=== PATIENT | female | born 1985 | race Caucasian/White ===

== ENCOUNTER → 2020-01-31 | Outpatient (REF) | payer OTHER ==
[~2020-01-31] MED LIST: CIPR-249 PO; FLUO40CA PO; METH10TA2 PO; MIRA3350 PO; PHEN-501 PO
[2020-01-31 22:41] LABS: CHLAMYDIA DNA AMPLIFICATION NEGATIVE (NEGATIVE); GC DNA AMPLIFICATION NEGATIVE (NEGATIVE)
== END ==
LOC: M SFHCLERA 18:12
PROVIDERS: ATTEND Nurse Practitioner Family
DX: R30.0 Dysuria (principal)
CPT/HCPCS: 81002; 81025; 87086; 87661; G0463

== ENCOUNTER 2020-02-05 22:13 | Emergency (ER) | payer OTHER ==
[~2020-02-05] VITALS: Ht 157.5 cm; Wt 75.8 kg
[2020-02-05 22:17] VITALS: BP_DIAS 70
[2020-02-05] MEDS ORDERED: FLUO40CA PO (22:23)
[2020-02-05] MEDS ORDERED: METH10TA2 PO (22:23)
[2020-02-05] MEDS ORDERED: CIPR-249 PO (22:23)
[2020-02-05 23:20] LABS: BASO % 0.6 % (0.0-1.0); EOS # 0.1 10^3/uL (0.0-0.5); EOS % 2.7 % (0.0-3.0); HEMATOCRIT 35.8 % (36.0-47.0); HEMOGLOBIN 12.1 g/dl (12.0-15.5); LYMPH % 37.3 % (24.0-44.0); MEAN CORPUSCULAR HEMOGLOBIN 30.3 pg (27.0-33.0); MEAN CORPUSCULAR HGB CONC 33.8 g/dl (32.0-36.5); MEAN CORPUSCULAR VOLUME 89.5 fl (80.0-96.0); MONO # 0.5 10^3/uL (0.0-0.8); MONO % 9.1 % (0.0-5.0); NEUTROPHILS # 2.6 10^3/uL (1.5-8.5); NEUTROPHILS % 49.9 % (36.0-66.0); PLATELET COUNT, AUTOMATED 251 10^3/uL (150-450); WHITE BLOOD COUNT 5.3 10^3/uL (4.0-10.0)
[2020-02-05 23:23] LABS: APPEARANCE, URINE HAZY (CLEAR); BACTERIA, URINE AUTO NEGATIVE (NEGATIVE); BILIRUBIN, URINE AUTO NEGATIVE (NEGATIVE); BLOOD, URINE BLOOD 1+ (NEGATIVE); COLOR, URINE YELLOW (YELLOW); GLUCOSE, URINE (UA) AUTO NEGATIVE (NEGATIVE); KETONE, URINE AUTO NEGATIVE (NEGATIVE); LEUKOCYTE ESTERASE, URINE AUTO TRACE (NEGATIVE); MUCUS, URINE SMALL (NEGATIVE); NITRITE, URINE AUTO NEGATIVE (NEGATIVE); PROTEIN, URINE AUTO NEGATIVE (NEGATIVE); RBC, URINE AUTO 2 /HPF (0-3); SPECIFIC GRAVITY URINE AUTO 1.027 (1.002-1.035); SQUAMOUS EPITHELIAL CELL UR AU 3 /HPF (0-6); WBC, URINE AUTO 2 /HPF (0-3)
[2020-02-05] MEDS ORDERED: ACETAMINOPHEN 325 MG TAB PO ONE (23:30)
[2020-02-05] MEDS ORDERED: KETOROLAC 30 MG/ML VIAL (J1885) IV ONE (23:30)
--- NOTE | 2020-02-05 23:55 | REPVR ---
PROCEDURE INFORMATION: Exam: CT Abdomen And Pelvis Without Contrast Exam date and time: 02/05/2020 11:27 PM Age: 34 years old Clinical indication: Abdominal pain; Flank; Bilateral; Additional info: Bilateral flank pain, rlq pain TECHNIQUE: Imaging protocol: Computed tomography of the abdomen and pelvis without contrast. Radiation optimization: All CT scans at this facility use at least one of these dose optimization techniques: automated exposure control; mA and/or kV adjustment per patient size (includes targeted exams where dose is matched to clinical indication); or iterative reconstruction. COMPARISON: No relevant prior studies available. FINDINGS: Lungs: The imaged portions of the lung bases are clear. Heart: No cardiomegaly or pericardial effusion. Diaphragm: Intact. Liver: Unremarkable. No liver lesion is identified. The contour of the liver is smooth. No hepatomegaly is noted. Gallbladder and bile ducts: No calcified gallstones are noted. No gallbladder wall thickening, pericholecystic fluid, or pericholecystic inflammatory changes are identified. No dilation of the intrahepatic or extrahepatic bile ducts is noted. Pancreas: Unremarkable. No dilation of the main pancreatic duct is noted. There is no inflammatory fat stranding around the pancreas to suggest acute pancreatitis. Spleen: Unremarkable. No splenomegaly is noted. Adrenals: Normal. No adrenal mass is noted. Kidneys and ureters: The kidneys are unremarkable. No renal lesion is noted. No calculi are seen in the kidneys or ureters. There is no hydronephrosis or hydroureter. Stomach and bowel: The stomach is unremarkable. The small bowel is unremarkable. There is no evidence for a bowel obstruction, diverticulosis, diverticulitis, colitis, perforated viscus, pneumatosis intestinalis, intussusception, or volvulus. There is a moderate amount of formed stool in the colon. Appendix: Normal. There is no evidence for appendicitis. Intraperitoneal space: No free air. No fluid collection. Retroperitoneal space: No fluid collection. No mass. Vasculature: There is no abdominal aortic aneurysm or intramural hematoma. Incidental note is made of small round calcifications in the pelvis, which are compatible with phleboliths. Lymph nodes: No enlarged lymph nodes. Bladder: The partially distended urinary bladder is unremarkable. No stones or masses are seen in the bladder. Reproductive: The uterus is anterverted and unremarkable. The ovaries are unremarkable. Bones/joints: No fracture or dislocation is noted. There is no suspicious osteolytic or osteoblastic lesion. Soft tissues: There is a small fat containing umbilical hernia. IMPRESSION: 1. No acute findings in the abdomen or pelvis. Normal appendix. 2. No stones in the kidneys, ureters, or urinary bladder. No hydronephrosis or hydroureter. 3. Moderate amount of formed stool in the colon. No evidence for a bowel obstruction. 4. Small fat containing umbilical hernia. Electronically signed by: Lior Queen On 02/05/2020 23:55:04 PM
[2020-02-06] MEDS ORDERED: MIRA3350 PO (00:13)
[2020-02-06] MEDS ORDERED: PHEN-501 PO (00:16)
[2020-02-06] MEDS ORDERED: PHENAZOPYRIDINE 100 MG TAB PO ONE (00:30)
[2020-02-06 00:42] VITALS: BP_SYST 105
[2020-02-06 02:16] LABS: CHLAMYDIA DNA AMPLIFICATION NEGATIVE (NEGATIVE); GC DNA AMPLIFICATION NEGATIVE (NEGATIVE)
== END 2020-02-06 00:30 | disposition home or self-care (01) ==
LOC: M ED 22:13
DX: K59.00 Constipation, unspecified (principal); N39.0 Urinary tract infection, site not specified; K42.9 Umbilical hernia without obstruction or gangrene; Z79.2 Long term (current) use of antibiotics; Z79.899 Other long term (current) drug therapy; Z88.0 Allergy status to penicillin; Z88.8 Allergy status to other drugs, medicaments and biological substances
CPT/HCPCS: 74176; 80047; 81001; 84702; 85025; 87661; 96374; 99284; J1885

== ENCOUNTER → 2020-02-27 | Outpatient (CLI) | payer OTHER ==
--- NOTE | 2020-02-28 13:22 | ECGEPIP ---
[facility] Test Date: 2020-02-27 Pat Name: MINDI KAPLAN Department: Room: - Gender: Female Body Joiner: : 1985 Requested By: Mikey Dai Order Number: [id number] Reading MD: Cory Jack Measurements Intervals Kenneth Rate: 71 P: 64 MO: 147 QRS: 24 QRSD: 98 T: 24 QT: 403 QTc: 441 Interpretive Statements SINUS RHYTHM, Nonspecific T wave abnormalities (low amplitude). No prior ECG available for comparison at the time of interpretation. Electronically Signed on 02-28-2020 13:22:31 EDT by Cory Jack
== END ==
LOC: M EKG 13:52
PROVIDERS: ATTEND Family Medicine
DX: F11.20 Opioid dependence, uncomplicated (principal)

== ENCOUNTER → 2020-02-27 | Outpatient (CLI) | payer OTHER ==
[2020-02-27 14:55] LABS: BASO % 0.6 % (0.0-1.0); EOS # 0.1 10^3/uL (0.0-0.5); EOS % 1.7 % (0.0-3.0); HEMATOCRIT 35.2 % (36.0-47.0); HEMOGLOBIN 12.2 g/dl (12.0-15.5); LYMPH # 1.7 10^3/uL (1.5-5.0); LYMPH % 31.4 % (24.0-44.0); MEAN CORPUSCULAR HEMOGLOBIN 31.2 pg (27.0-33.0); MEAN CORPUSCULAR HGB CONC 34.7 g/dl (32.0-36.5); MONO # 0.5 10^3/uL (0.0-0.8); MONO % 9.3 % (0.0-5.0); NEUTROPHILS # 3.1 10^3/uL (1.5-8.5); NEUTROPHILS % 56.8 % (36.0-66.0); PLATELET COUNT, AUTOMATED 272 10^3/uL (150-450); RED BLOOD COUNT 3.91 10^6/uL (4.00-5.40); WHITE BLOOD COUNT 5.4 10^3/uL (4.0-10.0)
[2020-02-27 15:24] LABS: ALBUMIN 3.6 GM/DL (3.2-5.2); ALT/SGPT 19 U/L (12-78); BILIRUBIN,DIRECT 0.2 MG/DL (0.0-0.2); BILIRUBIN,TOTAL 0.5 MG/DL (0.2-1.0); BLOOD UREA NITROGEN 8 MG/DL (7-18); CALCIUM LEVEL 8.7 MG/DL (8.5-10.1); CARBON DIOXIDE LEVEL 26 MEQ/L (21-32); CHLORIDE LEVEL 108 MEQ/L (98-107); GLOMERULAR FILTRATION RATE > 60.0 (>60); GLUCOSE, FASTING 79 MG/DL (70-100); SODIUM LEVEL 139 MEQ/L (136-145)
== END ==
LOC: M LAB 13:46
PROVIDERS: ATTEND Nurse Practitioner Family
DX: F11.20 Opioid dependence, uncomplicated (principal)

== ENCOUNTER 2020-03-04 21:32 | Emergency (ER) | payer OTHER ==
[~2020-03-04] VITALS: Ht 154.9 cm; Wt 72.7 kg
[2020-03-04 22:01] VITALS: BP 137/68
== END 2020-03-04 22:07 | disposition home or self-care (01) ==
LOC: M ED 21:32
DX: N89.8 Other specified noninflammatory disorders of vagina (principal); N92.0 Excessive and frequent menstruation with regular cycle; Z88.0 Allergy status to penicillin; Z88.2 Allergy status to sulfonamides; Z88.8 Allergy status to other drugs, medicaments and biological substances; Z79.899 Other long term (current) drug therapy

== ENCOUNTER 2020-04-03 20:54 | Emergency (ER) | payer OTHER ==
[~2020-04-03] VITALS: Ht 154.9 cm; Wt 76.9 kg
[2020-04-03 21:38] LABS: BASO % 0.5 % (0.0-1.0); EOS # 0.1 10^3/uL (0.0-0.5); EOS % 1.8 % (0.0-3.0); HEMATOCRIT 36.1 % (36.0-47.0); HEMOGLOBIN 12.4 g/dl (12.0-15.5); LYMPH # 1.7 10^3/uL (1.5-5.0); LYMPH % 28.2 % (24.0-44.0); MEAN CORPUSCULAR HEMOGLOBIN 30.5 pg (27.0-33.0); MEAN CORPUSCULAR HGB CONC 34.3 g/dl (32.0-36.5); MEAN CORPUSCULAR VOLUME 88.7 fl (80.0-96.0); MONO # 0.5 10^3/uL (0.0-0.8); MONO % 8.7 % (0.0-5.0); NEUTROPHILS # 3.7 10^3/uL (1.5-8.5); NEUTROPHILS % 60.5 % (36.0-66.0); PLATELET COUNT, AUTOMATED 287 10^3/uL (150-450); RED BLOOD COUNT 4.07 10^6/uL (4.00-5.40); WHITE BLOOD COUNT 6.1 10^3/uL (4.0-10.0)
[2020-04-03 22:07] LABS: ALBUMIN 3.5 GM/DL (3.2-5.2); ALT/SGPT 21 U/L (12-78); BILIRUBIN,DIRECT < 0.1 MG/DL (0.0-0.2); BILIRUBIN,TOTAL 0.4 MG/DL (0.2-1.0); LIPASE 100 U/L (73-393); TOTAL PROTEIN 7.4 GM/DL (6.4-8.2)
[2020-04-03] MEDS ORDERED: ACETAMINOPHEN 325 MG TAB PO ONE (22:15)
--- NOTE | 2020-04-03 23:12 | REPVR ---
PROCEDURE INFORMATION: Exam: US , Transvaginal Exam date and time: 04/03/2020 11:00 PM Age: 34 years old Clinical indication: Other: Pelvic pain; Gestational age or lmp: 6; ; Additional info: Rlq and llq abd pain, +hcg TECHNIQUE: Imaging protocol: Real-time transvaginal obstetrical ultrasound of the maternal pelvis and a first trimester with image documentation. Transvaginal imaging was used for better evaluation of the fetus and adnexa. COMPARISON: No relevant prior studies available. FINDINGS: Gestation: No intrauterine gestation sac seen. MATERNAL: Uterus: Uterus measures 7.7 x 5.0 x 4.2 cm. Endometrial stripe measures 1.3 mm in thickness. Uterus is anteverted. Punctate echogenic focus in the anterior wall of the myometrium with ring down artifact. Right adnexa: Right ovary measures 1.8 x 1.9 x 1.9 cm. Normal vascular flow. No masses. Left adnexa: Left ovary measures 2.2 x 1.3 x 1.5 cm. Normal vascular flow. No masses. Intraperitoneal space: Small free fluid in the posterior cul-de-sac. IMPRESSION: 1. No intrauterine gestation sac seen. Differential diagnosis includes very early gestation versus completed miscarriage versus ectopic . Recommend follow-up beta HCG and OB ultrasound. 2. Punctate echogenic focus in the anterior wall of the myometrium with ring down artifact. Possible calcification or postsurgical changes. COMMENTS: Verbally discussed with RADHA FROST at 04/03/2020 11:07 PM EDT. Electronically signed by: Kimberley Elliott On 04/03/2020 23:11:58 PM
[2020-04-03 23:53] VITALS: BP 118/68
== END 2020-04-04 | disposition home or self-care (01) ==
LOC: M ED 20:54
DX: Z32.01 Encounter for pregnancy test, result positive (principal); R10.9 Unspecified abdominal pain; F17.200 Nicotine dependence, unspecified, uncomplicated; Z88.0 Allergy status to penicillin; Z88.2 Allergy status to sulfonamides; Z88.1 Allergy status to other antibiotic agents; Z88.8 Allergy status to other drugs, medicaments and biological substances; Z79.899 Other long term (current) drug therapy; Z79.891 Long term (current) use of opiate analgesic

== ENCOUNTER 2020-04-06 12:33 | Emergency (ER) | payer OTHER ==
[~2020-04-06] VITALS: Ht 154.9 cm; Wt 77.0 kg
[2020-04-06] MEDS ORDERED: PREN200C PO (12:42)
[2020-04-06] MEDS ORDERED: NS 1,000 ML IV ONE (13:00)
[2020-04-06 13:34] LABS: HEMATOCRIT 35.2 % (36.0-47.0); HEMOGLOBIN 12.1 g/dl (12.0-15.5); MEAN CORPUSCULAR HEMOGLOBIN 30.7 pg (27.0-33.0); MEAN CORPUSCULAR HGB CONC 34.4 g/dl (32.0-36.5); MEAN CORPUSCULAR VOLUME 89.3 fl (80.0-96.0); PLATELET COUNT, AUTOMATED 269 10^3/uL (150-450); RED BLOOD COUNT 3.94 10^6/uL (4.00-5.40); WHITE BLOOD COUNT 4.9 10^3/uL (4.0-10.0)
[2020-04-06 14:06] LABS: BLOOD UREA NITROGEN 8 MG/DL (7-18); CALCIUM LEVEL 8.6 MG/DL (8.5-10.1); CARBON DIOXIDE LEVEL 26 MEQ/L (21-32); CHLORIDE LEVEL 108 MEQ/L (98-107); CREATININE FOR GFR 0.77 MG/DL (0.55-1.30); GLOMERULAR FILTRATION RATE > 60.0 (>60); GLUCOSE, FASTING 86 MG/DL (70-100); HCG, SERUM QUANTITATIVE 596 MIU/ML; POTASSIUM SERUM 4.2 MEQ/L (3.5-5.1); SODIUM LEVEL 140 MEQ/L (136-145)
[2020-04-06] MEDS ORDERED: GLYCERIN ADULT SUPP PR ONE (14:30)
[2020-04-06 14:39] VITALS: BP 122/64
== END 2020-04-06 14:42 | disposition home or self-care (01) ==
LOC: M ED 12:33
DX: O36.80X0 Pregnancy with inconclusive fetal viability, not applicable or unspecified (principal); O99.611 Diseases of the digestive system complicating pregnancy, first trimester; K59.00 Constipation, unspecified; O99.341 Other mental disorders complicating pregnancy, first trimester; F32.9 Major depressive disorder, single episode, unspecified; F41.9 Anxiety disorder, unspecified; O99.331 Smoking (tobacco) complicating pregnancy, first trimester; F17.210 Nicotine dependence, cigarettes, uncomplicated; Z79.899 Other long term (current) drug therapy; F11.21 Opioid dependence, in remission; Z88.0 Allergy status to penicillin; Z88.8 Allergy status to other drugs, medicaments and biological substances; Z88.2 Allergy status to sulfonamides; Z3A.01 Less than 8 weeks gestation of pregnancy

== ENCOUNTER → 2020-04-09 | Outpatient (REF) | payer OTHER ==
[~2020-04-09] MED LIST changes: +PREN200C PO
== END ==
LOC: M SFHCWAGY 07:53
PROVIDERS: ATTEND Specialist
DX: O00.90 Unspecified ectopic pregnancy without intrauterine pregnancy (principal)

== ENCOUNTER 2020-04-10 17:30 | Emergency (ER) | payer OTHER ==
[~2020-04-10] VITALS: Ht 154.9 cm; Wt 77.9 kg
[2020-04-10 18:01] LABS: BASO % 0.4 % (0.0-1.0); EOS # 0.1 10^3/uL (0.0-0.5); HEMATOCRIT 34.1 % (36.0-47.0); HEMOGLOBIN 11.7 g/dl (12.0-15.5); LYMPH # 1.7 10^3/uL (1.5-5.0); MEAN CORPUSCULAR HEMOGLOBIN 30.6 pg (27.0-33.0); MEAN CORPUSCULAR HGB CONC 34.3 g/dl (32.0-36.5); MEAN CORPUSCULAR VOLUME 89.3 fl (80.0-96.0); MONO # 0.7 10^3/uL (0.0-0.8); NEUTROPHILS # 4.3 10^3/uL (1.5-8.5); PLATELET COUNT, AUTOMATED 296 10^3/uL (150-450); RED BLOOD COUNT 3.82 10^6/uL (4.00-5.40); WHITE BLOOD COUNT 6.8 10^3/uL (4.0-10.0)
[2020-04-10 18:30] LABS: ALBUMIN 3.6 GM/DL (3.2-5.2); ALT/SGPT 23 U/L (12-78); BILIRUBIN,TOTAL 0.3 MG/DL (0.2-1.0); BLOOD UREA NITROGEN 7 MG/DL (7-18); CALCIUM LEVEL 8.6 MG/DL (8.5-10.1); CARBON DIOXIDE LEVEL 28 MEQ/L (21-32); CHLORIDE LEVEL 106 MEQ/L (98-107); CREATININE FOR GFR 0.74 MG/DL (0.55-1.30); GLOMERULAR FILTRATION RATE > 60.0 (>60); GLUCOSE, FASTING 81 MG/DL (70-100); POTASSIUM SERUM 3.8 MEQ/L (3.5-5.1); SODIUM LEVEL 141 MEQ/L (136-145); TOTAL PROTEIN 7.2 GM/DL (6.4-8.2)
[2020-04-10] MEDS ORDERED: METHOTREXATE 50MG/2ML VIAL (J9260 PER 50MG) IM ONE (20:00)
--- NOTE | 2020-04-10 20:03 | REPVR ---
PROCEDURE INFORMATION: Exam: US First Trimester, Transabdominal Exam date and time: 04/10/2020 7:52 PM Age: 34 years old Clinical indication: Other: Pelvic pain; Gestational age or lmp: Unk; ; Additional info: Reevaluate ectopic per Dr. Adams TECHNIQUE: Imaging protocol: Real-time transabdominal obstetrical ultrasound of the maternal pelvis and a first trimester , less than 14 weeks 0 days, with image documentation. COMPARISON: 1ST TRIMESTER US 04/03/2020 10:38 PM FINDINGS: GESTATION: Gestation: No gestational sac demonstrated in the uterus. BIOMETRY: Estimated gestational age: Unknown LMP. MATERNAL: Uterus: Uterus measures 7.4 x 4 x 5 cm. Endometrial echo complex measures 12 mm. Cervix: Unremarkable. Right adnexa: The right ovary measures 3.1 x 3.4 x 2.8 cm. There is an echogenic mass with a centrally cystic focus and minimal hypervascularity demonstrated medial to the right ovary measuring 2.3 x 2 x 1.8 cm. Findings suspicious for a ectopic . Left adnexa: Left ovary measures 2.1 x 2 x 2.1 cm. Intraperitoneal: No intraperitoneal free fluid. Other findings: There is free fluid in the cul-de-sac. IMPRESSION: 1. The right ovary measures 3.1 x 3.4 x 2.8 cm. There is an echogenic mass with a centrally cystic focus demonstrated medial to the right ovary measuring 2.3 x 2 x 1.8 cm. Findings suspicious for a ectopic . 2. Empty uterus. Electronically signed by: Igor Manzanares On 04/10/2020 20:03:15 PM
[2020-04-10 21:21] VITALS: BP 121/69
== END 2020-04-10 22:40 | disposition home or self-care (01) ==
LOC: M ED 17:30
DX: O00.90 Unspecified ectopic pregnancy without intrauterine pregnancy (principal); R10.32 Left lower quadrant pain; F41.9 Anxiety disorder, unspecified; F32.9 Major depressive disorder, single episode, unspecified; Z88.0 Allergy status to penicillin; Z88.2 Allergy status to sulfonamides; Z88.8 Allergy status to other drugs, medicaments and biological substances; Z79.899 Other long term (current) drug therapy
CPT/HCPCS: 36415; 76801; 76817; 80053; 84702; 85025; 93976; 99284; J9260

== ENCOUNTER → 2020-04-10 | Outpatient (CLI) | payer OTHER | LOC: M LAB 12:24 | PROVIDERS: ATTEND Specialist | DX: O00.90 Unspecified ectopic pregnancy without intrauterine pregnancy (principal) ==

== ENCOUNTER → 2020-04-14 | Outpatient (CLI) | payer OTHER | LOC: M LAB 15:51 | PROVIDERS: ATTEND Physician Assistant | DX: O00.90 Unspecified ectopic pregnancy without intrauterine pregnancy (principal) ==

== ENCOUNTER → 2020-04-17 | Outpatient (CLI) | payer OTHER | LOC: M LAB 14:19 | PROVIDERS: ATTEND Specialist | DX: O00.90 Unspecified ectopic pregnancy without intrauterine pregnancy (principal) ==

== ENCOUNTER → 2020-05-20 | Outpatient (REF) | payer OTHER ==
[~2020-05-20] MED LIST changes: +DICL10TA PO
== END ==
LOC: M SFHCLERA 15:17
PROVIDERS: ATTEND Nurse Practitioner Family
DX: R30.0 Dysuria (principal)

== ENCOUNTER 2020-09-09 20:11 | Emergency (ER) | payer OTHER ==
[~2020-09-09] VITALS: Ht 154.9 cm; Wt 74.0 kg
[~2020-09-09 20:11] MED LIST changes: -DICL10TA PO
[2020-09-09] MEDS ORDERED: MVI -ADULT INJECTION 10ML VIAL IV ONE (20:30)
[2020-09-09] MEDS ORDERED: DICYCLOMINE INJ 20MG/2ML (J0500) IM ONE (20:30)
[2020-09-09] MEDS ORDERED: LR 1,000 ML IV ONE ×2 (20:30)
[2020-09-09] MEDS ORDERED: cefTRIAXone SOD 2 GM in D5W MINI-BAG PLUS 50 ML IV ONE (21:15)
[2020-09-09 21:34] LABS: BASO % 0.3 % (0.0-1.0); EOS # 0.1 10^3/uL (0.0-0.5); HEMOGLOBIN 10.6 g/dl (12.0-15.5); LYMPH # 1.5 10^3/uL (1.5-5.0); LYMPH % 24.6 % (24.0-44.0); MEAN CORPUSCULAR HEMOGLOBIN 30.4 pg (27.0-33.0); MEAN CORPUSCULAR HGB CONC 34.2 g/dl (32.0-36.5); MEAN CORPUSCULAR VOLUME 88.8 fl (80.0-96.0); MONO # 0.5 10^3/uL (0.0-0.8); MONO % 7.6 % (0.0-5.0); NEUTROPHILS # 4.1 10^3/uL (1.5-8.5); NEUTROPHILS % 66.2 % (36.0-66.0); PLATELET COUNT, AUTOMATED 233 10^3/uL (150-450); RED BLOOD COUNT 3.49 10^6/uL (4.00-5.40); WHITE BLOOD COUNT 6.2 10^3/uL (4.0-10.0)
[2020-09-09 21:54] LABS: BLOOD UREA NITROGEN 8 MG/DL (7-18); CALCIUM LEVEL 8.2 MG/DL (8.5-10.1); CARBON DIOXIDE LEVEL 28 MEQ/L (21-32); CHLORIDE LEVEL 106 MEQ/L (98-107); CREATININE FOR GFR 0.57 MG/DL (0.55-1.30); GLOMERULAR FILTRATION RATE > 60.0 (>60); GLUCOSE, FASTING 78 MG/DL (70-100); POTASSIUM SERUM 3.8 MEQ/L (3.5-5.1); SODIUM LEVEL 137 MEQ/L (136-145)
[2020-09-09] MEDS ORDERED: MULTIVITAMIN -ADULT INJECTION 10 ML in NS 1,000 ML IV ONE (22:00)
--- NOTE | 2020-09-09 22:26 | REPVR ---
PROCEDURE INFORMATION: Exam: US After First Trimester, Transabdominal Exam date and time: 09/09/2020 9:52 PM Age: 35 years old Clinical indication: Lmp or gestational age (in weeks): Lmp 06/06/20; Antepartum complications; Dehydration, low BP; ; 8, para 2 TECHNIQUE: Imaging protocol: Real-time transabdominal obstetrical ultrasound of the maternal pelvis and a second or third trimester with image documentation. COMPARISON: 1ST TRIMESTER US 04/10/2020 7:31 PM FINDINGS: Last menstrual period: 06/06/2020 Gestation: There is a single live intrauterine . heart rate: 135 bpm Presentation: Variable Placenta: Posterior location. Grade 0. No placenta previa. Amniotic fluid: Within normal limits. ANATOMY: Midline falx: Not evaluated due to the early gestational age. Cerebellum: Not evaluated due to the early gestational age. Cerebral ventricles: Not evaluated due to the early gestational age. Cisterna magna: Not evaluated due to the early gestational age. Septum pellucidum: Not evaluated due to the early gestational age. Upper lip and nose: Not evaluated due to the early gestational age. Heart four-chamber view, heart size and position: Not evaluated due to the early gestational age. kidneys: Not evaluated due to the early gestational age. stomach: Normal. urinary bladder: Normal. Spine: Not evaluated due to the early gestational age. Umbilical cord insertion site into the abdomen: Not evaluated due to the early gestational age. Umbilical cord vessel number: Not evaluated due to the early gestational age. Arms and hands: Two upper extremities are visualized. Legs and feet: Two lower extremities are visualized. external genitalia: Not evaluated due to the early gestational age. BIOMETRY: Gestational age (AUA): 13 weeks 5 days Gestational age by LMP: Thirteen weeks 4 days Estimated due date (AUA): 03/12/2021 Estimated due date by LMP: 03/13/2021 Estimated weight percentile: 34th percentile Estimated weight: 80 g +/- 12 g (3 oz +/- 1 oz) [place]-Rump length: 7.8 cm; 13 weeks 6 days (58th percentile) Biparietal diameter: 2.5 cm; 14 weeks 2 days (73rd percentile) Head circumference: 9.3 cm; 14 weeks 2 days (73rd percentile) Abdominal circumference: 7.1 cm; 13 weeks 5 days (52nd percentile) Humerus length: 1.3 cm; 13 weeks 2 days (46th percentile) Femur length: 1.2 cm; 13 weeks 3 days (46th percentile) biometric ratios: CI = 0.73; FL/AC = 0.17; FL/BPD = 0.47; HC/AC = 1.31 (1.11 - 1.30) MATERNAL ANATOMY: Uterus: Unremarkable. Cervix: Unremarkable. Right adnexa: The right ovary is normal in appearance. No right ovarian cyst or right adnexal mass is noted. The right ovary measures 2.9 cm x 1.5 cm x 2.4 cm. The arterial and venous color Doppler flow and spectral waveforms within the right ovary are within normal limits, without evidence for right ovarian torsion. Left adnexa: The left ovary was not visualized due to obscuration by intestinal gas. Intraperitoneal space: No free fluid is seen from the images obtained. IMPRESSION: 1. Single live intrauterine with a gestational age by ultrasound of 13 weeks 5 days and estimated due date on 03/12/2021 with appropriate signs of growth. A second trimester obstetrical ultrasound is suggested at 19-20 weeks gestation for a detailed anatomical survey. 2. Estimated weight of 80 g +/- 12 g (3 oz +/- 1 oz), which is in the 34th percentile. Electronically signed by: Lior Queen On 09/09/2020 22:26:29 PM
[2020-09-10] MEDS ORDERED: DICL10TA PO (00:59)
[2020-09-10 01:05] VITALS: BP 111/59
== END 2020-09-10 01:25 | disposition home or self-care (01) ==
LOC: M ED 20:11
DX: O23.41 Unspecified infection of urinary tract in pregnancy, first trimester (principal); O21.0 Mild hyperemesis gravidarum; O99.281 Endocrine, nutritional and metabolic diseases complicating pregnancy, first trimester; Z3A.13 13 weeks gestation of pregnancy; Z88.0 Allergy status to penicillin; Z88.2 Allergy status to sulfonamides; Z88.8 Allergy status to other drugs, medicaments and biological substances; Z79.899 Other long term (current) drug therapy
CPT/HCPCS: 36415; 76811; 80048; 81001; 85025; 87086; 93976; 96365; 96367; 96372; 99285; J0500; J0696

== ENCOUNTER → 2020-09-09 | Outpatient (CLI) | payer OTHER | LOC: M PLALAB 13:12 | PROVIDERS: ATTEND Specialist | DX: Z34.82 Encounter for supervision of other normal pregnancy, second trimester (principal) ==

== ENCOUNTER → 2020-09-26 | Outpatient (CLI) | payer OTHER ==
[~2020-09-26] MED LIST changes: +DICL10TA PO
== END ==
LOC: M PLALAB 15:40
PROVIDERS: ATTEND Specialist
DX: Z34.82 Encounter for supervision of other normal pregnancy, second trimester (principal); Z3A.00 Weeks of gestation of pregnancy not specified

== ENCOUNTER → 2020-10-14 | Outpatient (CLI) | payer OTHER ==
--- NOTE | 2020-10-16 07:20 | REP ---
INDICATION: ANATOMY COMPARISON: None. TECHNIQUE: Transabdominal obstetrical ultrasound with color Doppler evaluation. FINDINGS: Examination demonstrates a single live intrauterine in transverse presentation. motion is identified by technologist. Placenta is noted posterior and grade 1 evidence for marginal previa with the placental tip bordering the closed internal os. Cervix measures 3.6 in length and appears closed.. Gestational age by LMP 18 weeks 4 days with ANAMARIA 03/13/2021. Gestational age by current measurements 18 weeks 3 days with ANAMARIA 03/14/2021. FHR equals 142 beats per minute. BPD: 3.9 cm 17 weeks 6 days HC: 15.3 cm 18 weeks 2 days AC: 13.4 cm 18 weeks 6 days FL: 2.8 cm 18 weeks 3 days HL: 2.7 cm 18 weeks 3 days HC/AC: 1.14 Estimated weight 247 grams (44thpercentile). Anatomical assessment demonstrates normal structures including cranium, choroid plexus, cavum, cerebellum/posterior fossa, facial features, lungs, diaphragm, stomach, cord insertion/three-vessel cord, kidneys/bladder, spine, and extremities. IMPRESSION: 1. Single live intrauterine demonstrating appropriate interval growth. 2. Marginal previa. 3. Limited evaluation of the heart/ventricular outflow tracts. Remainder of the anatomical assessment is complete and normal. <Electronically signed by Kb More > 10/16/20 [id number]
== END ==
LOC: M WHC 10:32
PROVIDERS: ATTEND Obstetrics & Gynecology
DX: O26.22 Pregnancy care for patient with recurrent pregnancy loss, second trimester (principal); Z3A.18 18 weeks gestation of pregnancy

== ENCOUNTER → 2020-11-17 | Outpatient (CLI) | payer OTHER ==
--- NOTE | 2020-11-17 12:31 | REP ---
INDICATION: F/U ANATOMY COMPARISON: 10/14/2020 TECHNIQUE: Transabdominal obstetrical ultrasound with color Doppler evaluation. FINDINGS: Examination demonstrates a single live intrauterine in transverse presentation. motion is identified by technologist. Placenta is noted posterior and grade 0 without evidence for placenta previa or abruption. Amniotic fluid volume is normal. Cervix measures 3.6 cm in length and appears closed.. Gestational age by LMP 23 weeks 3 days with ANAMARIA 03/13/2021. Gestational age by current measurements 22 weeks 6 days with ANAMARIA 03/17/2021. FHR equals 136 beats per minute. Estimated weight 543 grams (21stpercentile). Anatomical assessment demonstrates normal structures including four-chamber heart and cardiac ventricular outflow tract. IMPRESSION: Single live intrauterine in transverse lie demonstrating appropriate interval growth. In conjunction with prior examination anatomical assessment is complete and normal. <Electronically signed by Kb More > 11/17/20 [id number]
== END ==
LOC: M WHC 11:34
PROVIDERS: ATTEND Obstetrics & Gynecology
DX: O26.22 Pregnancy care for patient with recurrent pregnancy loss, second trimester (principal); Z3A.23 23 weeks gestation of pregnancy

== ENCOUNTER → 2020-12-04 | Outpatient (REF) | payer OTHER ==
[2020-12-04 17:29] LABS: HEMATOCRIT 30.3 % (36.0-47.0); HEMOGLOBIN 10.2 g/dl (12.0-15.5); MEAN CORPUSCULAR HEMOGLOBIN 30.8 pg (27.0-33.0); MEAN CORPUSCULAR HGB CONC 33.7 g/dl (32.0-36.5); MEAN CORPUSCULAR VOLUME 91.5 fl (80.0-96.0); PLATELET COUNT, AUTOMATED 310 10^3/uL (150-450); RED BLOOD COUNT 3.31 10^6/uL (4.00-5.40); WHITE BLOOD COUNT 10.2 10^3/uL (4.0-10.0)
== END ==
LOC: M PLALAB 14:27
PROVIDERS: ATTEND Specialist
DX: Z34.82 Encounter for supervision of other normal pregnancy, second trimester (principal)

== ENCOUNTER 2020-12-25 21:06 | Outpatient (CLI) | payer OTHER ==
[~2020-12-25] VITALS: Ht 154.9 cm; Wt 74.8 kg
[2020-12-25 21:22] VITALS: BP 99/59
[2020-12-25 21:38] VITALS: BP 106/55
[2020-12-25 23:13] VITALS: BP 101/62
== END 2020-12-25 23:30 | disposition home or self-care (01) ==
LOC: M LDO 21:06
PROVIDERS: ATTEND Obstetrics & Gynecology
DX: O47.03 False labor before 37 completed weeks of gestation, third trimester (principal); Z3A.28 28 weeks gestation of pregnancy
CPT/HCPCS: G0378; G0463

== ENCOUNTER → 2021-01-01 | Outpatient (REF) | payer OTHER ==
[2021-01-01 17:41] LABS: APPEARANCE, URINE HAZY (CLEAR); BACTERIA, URINE AUTO NEGATIVE (NEGATIVE); BILIRUBIN, URINE AUTO NEGATIVE (NEGATIVE); BLOOD, URINE BLOOD NEGATIVE (NEGATIVE); COLOR, URINE YELLOW (YELLOW); GLUCOSE, URINE (UA) AUTO NEGATIVE (NEGATIVE); KETONE, URINE AUTO TRACE mg/dL (NEGATIVE); LEUKOCYTE ESTERASE, URINE AUTO 1+ (NEGATIVE); MUCUS, URINE SMALL (NEGATIVE); NITRITE, URINE AUTO NEGATIVE (NEGATIVE); PROTEIN, URINE AUTO 1+ mg/dL (NEGATIVE); RBC, URINE AUTO 0 /HPF (0-3); SPECIFIC GRAVITY URINE AUTO 1.021 (1.002-1.035); SQUAMOUS EPITHELIAL CELL UR AU 1 /HPF (0-6); WBC, URINE AUTO 3 /HPF (0-3)
== END ==
LOC: M SFHCWAGY 16:57
PROVIDERS: ATTEND Advanced Practice Midwife
DX: Z34.93 Encounter for supervision of normal pregnancy, unspecified, third trimester (principal); Z3A.29 29 weeks gestation of pregnancy
CPT/HCPCS: 81001; 87086; G0463

== ENCOUNTER → 2021-02-17 | Outpatient (REF) | payer OTHER | LOC: M SFHCWAGY 16:49 | PROVIDERS: ATTEND Advanced Practice Midwife | DX: Z36.85 Encounter for antenatal screening for Streptococcus B (principal); Z3A.36 36 weeks gestation of pregnancy | CPT/HCPCS: 87081; G0463 ==

== ENCOUNTER 2021-03-06 18:15 | Inpatient (IN) | payer OTHER ==
[2021-03-06] VITALS (17 sets, daily range): BP systolic 97–130; BP diastolic 55–79
[~2021-03-06] VITALS: Ht 154.9 cm; Wt 80.5 kg
[2021-03-06] MEDS ORDERED: METHYLERGONOVINE MALEATE 0.2 MG/ML VIAL (J2210) IM PRN (18:30)
[2021-03-06] MEDS ORDERED: LACTATED RINGER'S 1000 ML IV STA (18:30)
[2021-03-06] MEDS ORDERED: LIDOCAINE 1% MDV 20ML VIAL INFIL PRN (18:30)
[2021-03-06] MEDS ORDERED: OXYTOCIN DRIP 30 UNITS in IV 1 EA IV PRN (18:30)
[2021-03-06] MEDS ORDERED: PRENTAB9 PO (18:45)
[2021-03-06] MEDS ORDERED: METH10TA2 PO ×2 (18:45)
[2021-03-06] MEDS ORDERED: FLUO40CA PO (18:45)
[2021-03-06] MEDS ORDERED: OXYTOCIN DRIP 30 UNITS in IV 1 EA IV SCH (19:00)
[2021-03-06 19:57] LABS: HEMATOCRIT 32.4 % (36.0-47.0); HEMOGLOBIN 10.6 g/dl (12.0-15.5); MEAN CORPUSCULAR HEMOGLOBIN 29.4 pg (27.0-33.0); MEAN CORPUSCULAR HGB CONC 32.7 g/dl (32.0-36.5); PLATELET COUNT, AUTOMATED 299 10^3/uL (150-450); WHITE BLOOD COUNT 11.9 10^3/uL (4.0-10.0)
--- NOTE | 2021-03-06 20:49 | HPEPDOC ---
Obstetrical History & Physical General Date of Admission Mar 06, 2021 at 18:15 History of Present Illness Chief Complaint: Contractions, term, Induction of labor Information Provided By: Patient Age: 35 : 9 Term: 2 Pre-term: 0 Abortions: 6 Livin Care Care: Good Care Dating Final EDC: Mar 13, 2021 Final EDC by: LMP EGA at Admission: 39 Antepartum Course Admission Weight (lbs.): 177.8 Past Medical History Past Obstetrical History #1: Past Obstetrical History: Primgravida (2008) Type of Delivery: Spontaneous Vaginal Del. (forceps) Sex of Infant: Female (7#) Complications: Yes (forcep delivery) Past Obstetrical History #2: Past Obstetrical History: Multigravida (2018) Type of Delivery: Spontaneous Vaginal Del. 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 Surgical History: Tooth extraction Family History Significant Family History: No pertinent family hx Social History Marital Status: Family situation: Spouse/partner home Psychosocial History: Anxiety, Depression * Smoker: former Smoker Alcohol: Denies Drugs: other (history, methadone maintenance) Abuse Violence Screening Have you been hit/kicked/slapp: No Have you been sexually assault: No Allergies Coded Allergies: Penicillins (Verified Allergy, Unknown, 04/06/20) dimenhydrinate (Verified Allergy, Unknown, GRAVOL, 04/06/20) sulfamethoxazole (Verified Allergy, Unknown, 04/06/20) trimethoprim (Verified Allergy, Unknown, 04/06/20) Medications Scheduled Fluoxetine Hcl (Fluoxetine HCl) 40 Mg Capsule, 60 MG PO DAILY Methadone HCl (Methadone HCl) 10 Mg Tablet, 55 MG PO QAM Methadone HCl (Methadone HCl) 10 Mg Tablet, 45 MG PO QHS No.137/Iron/Folic Acd ( Vitamin Tablet) 1 Each Tablet, 1 TAB PO DAILY Physical Examination Physical Examination GENERAL: Alert and oriented times three. BREAST: . ABDOMEN: Gravid and non-tender to touch. FETUS: Is vertex (VTX) by sterile vaginal examination (SVE), fetus is vertex (VTX) by [place]. EFW 7-8# HEART RATE: Regular rate and rhythm. LUNGS: Clear to auscultation (CTA). EXTREMITIES: No edema. No clonus. Deep tendon reflexes (DTRs) + 2. Vital Signs/I&O Vital Signs Date Time Temp Pulse Resp B/P (MAP) Pulse Ox O2 Delivery O2 Flow Rate FiO2 03/06/21 18:33 98.2 81 18 116/72 (87) Pertinent Laboratoy Data Blood Type: O+ RBC Antibody Screen: Negative HIV: Unknown (ordered on admit) Hepatitis B: Unknown (ordered on admit) Hepatitis C: Unknown (ordered on admit) Rapid Plasma Reagin: Unknown (ordered on admit) Rubella: Unknown (ordered on admit) Chlamydia/Gonorrhea: Unknown (ordered on admit) Group B Streptococcus: Negative Glucose Tolerance Test: 70 Anatomy Ultrasound Ultrasound Date: Oct 14, 2020 Placenta Location: Posterior Normal Anatomy: Yes Placenta Previa: Yes (marginal) Estimated Weight (grams): 247 (44%) Other Ultrasounds 09/09/2021 dating 13w5d ANAMARIA 03/12/2021 11/17/2020 543 gm 21% normal f/u anatomy Steroid Therapy Steroid Therapy: No Vaginal Examination Dilation: 4 cm Effacement: 80% Station: -2 Cervical Consistency: Medium Cervical Position: Posterior Presentation: Cephalic presentation Assessment Heart Rate (FHR): 120 Variability: Moderate Accelerations: Positive Decelerations: None Tocometer Contractions: Yes Frequency: irregular Strength: palpated as mild Assessment/Plan Assessment Sangita is a 35-year-old (G)9 para (P)2-0-6-2 at 39+0 weeks by 13-week ultrasound. Presents to Labor and Delivery (L&D) for elective induction due to advanced dilation. Denies LOF, bleeding or regular UC. Fetus is active. Plan Admit and orient. Quality Control Microbiologist and consent per consult Dr Adams Diet: Clear. Group B Streptococcus (GBS) negative. Labs and intravenous (IV) per unit protocol. Counseled on Pitocin and induction of labor (IOL). Lactated Ringers (LR): Bolus 500 mL, then at 125 mL/hr. Plans epidural for labor coping Anticipate normal spontaneous delivery (). C-S as appropriate. Latrice Song CNM Mar 06, 2021 18:58
[2021-03-06] MEDS ORDERED: METHADONE 10 MG TAB (S0109) PO SCH (21:00)
[2021-03-06] MEDS: LR 1,000 ML IV SCH (21:13)
[2021-03-06] MEDS ORDERED: FENTANYL 2MCG/ML ROPIVACAINE 0.2% IN 0.9% NACL 100ML IVBAG As Ordered ONE (22:43)
[2021-03-06] MEDS ORDERED: ePHEDrine SULFATE 25 MG/5 ML(5MG/ML) SYRINGE IV PRN (23:10)
[2021-03-06] MEDS ORDERED: LACTATED RINGER'S 1000 ML IV PRN (23:10)
[2021-03-06] MEDS ORDERED: EPIDURAL/PCA KEYS XX PRN (23:10)
[2021-03-06] MEDS ORDERED: NALOXONE INJ 0.4MG/1ML VIAL (J2310 PER 1MG) IV PRN (23:10)
[2021-03-06] MEDS ORDERED: REFRIGERATOR IV KEYS XX PRN (23:10)
[2021-03-06] MEDS ORDERED: ONDANSETRON 4MG/2ML VIAL IV PRN (23:10)
[2021-03-06] MEDS ORDERED: EPIDURAL COMMENT XX SCH (23:10)
[2021-03-06] MEDS ORDERED: FENTANYL/ROPIVACAINE/NACL BAG 100 ML EPIDURAL SCH (23:10)
[2021-03-07] VITALS (18 sets, daily range): BP systolic 98–141; BP diastolic 53–79
[2021-03-07] MEDS: METHADONE 10 MG TAB (S0109) PO SCH ×3 (00:08→23:04)
[2021-03-07] MEDS: FLUoxetine 20 MG CAP PO SCH ×2 (00:08→23:04)
--- NOTE | 2021-03-07 00:09 | IPNPDOC ---
Text Note Date of Service The patient was seen on 03/07/21. NOTE Progress Comfortable with epidural UC 2-5 minutes Cat I tracing SVE /-2, AROM moderate amount clear fluid Anticipate NSVB VS,Fishbone, I+O VS, Fishbone, I+O Laboratory Tests 03/06/21 19:17 Vital Signs Date Time Temp Pulse Resp B/P (MAP) Pulse Ox O2 Delivery O2 Flow Rate FiO2 03/06/21 22:14 82 18 99/58 (72) 03/06/21 21:12 98.4 Latrice Song CNM Mar 07, 2021 00:09
[2021-03-07 01:50] LABS: CHLAMYDIA DNA AMPLIFICATION NEGATIVE (NEGATIVE); GC DNA AMPLIFICATION NEGATIVE (NEGATIVE)
[2021-03-07] MEDS: LR 1,000 ML IV SCH (04:38)
[2021-03-07] MEDS ORDERED: DIBUCAINE 1% OINTMENT 30GM TOP PRN (05:15)
[2021-03-07] MEDS ORDERED: ACETAMINOPHEN TAB 650MG DOSE (2X325MG) PO PRN (05:15)
[2021-03-07] MEDS ORDERED: ANUSOL HC CREAM 30GM TOP PRN (05:15)
[2021-03-07] MEDS ORDERED: RHOGAM 300 MCG (1500 IU) INJ (J2790) IM SCH (05:15)
[2021-03-07] MEDS ORDERED: MOM 30ML SUSPENSION UDC PO PRN (05:15)
[2021-03-07] MEDS ORDERED: DOCUSATE SODIUM 100MG CAPSULE PO PRN (05:15)
[2021-03-07] MEDS ORDERED: MEASLES,MUMPS,RUBELLA VACCINE INJ (MMR-II) (90707) SC SCH (05:15)
[2021-03-07] MEDS ORDERED: IBUPROFEN 600MG TAB PO PRN (05:15)
[2021-03-07] MEDS ORDERED: METHYLERGONOVINE MALEATE 0.2 MG TAB PO PRN (05:15)
[2021-03-07] MEDS ORDERED: OXYTOCIN DRIP 30 UNITS in IV 1 EA IV SCH (05:15)
[2021-03-07 05:26] LABS: CORD GAS ABE V -2.5; CORD GAS HCO3 A 24.5 MEQ/L; CORD GAS HCO3 V 24.1 MEQ/L; CORD GAS O2 SAT A 19.4 %; CORD GAS O2 SAT V 55.3 %; CORD GAS PCO2 A 66.3 mmHg; CORD GAS PCO2 V 48.5 mmHg; CORD GAS PH A 7.186 UNITS; CORD GAS PH V 7.315 UNITS; CORD GAS PO2 A 10.8 mmHg; CORD GAS PO2 V 21.4 mmHg; CORD GAS SBC A 18.7 MEQ/L; CORD GAS SBC V 21.3 MEQ/L; CORD GAS TCO2 A 26.6 MEQ/L; CORD GAS TCO2 V 25.6 MEQ/L
--- NOTE | 2021-03-07 06:10 | DNPDOC ---
[facility] Delivery Note Delivery Note DATE OF DELIVERY: 03/07/2021 PREDELIVERY DIAGNOSIS: 39+1/7 weeks' gestation and labor. POST DELIVERY DIAGNOSIS: Delivered. PROCEDURE: Spontaneous vaginal delivery. PROVIDER: Latrice Song CNM ANESTHESIA: Epidural ESTIMATED BLOOD LOSS: 350 mL. FINDINGS: 7 pound 1 ounce, 3204gm male , Score 2/4/5, nuchal cord times 1, tight. DELIVERY SUMMARY: Patient is a 35-year-old 9 now para 2-0-6-3 who was admitted to labor and delivery for induction of labor at term due to advance dilation. Pitocin was administered with onset labor. She utilized an epidural for labor coping. AROM clear fluid 2347. Fully dilated 0435. Viable male delivered JOSIANE-ROT, somersaulted through tight nuchal cord @ 0451. Slow transitioning, cord doubly clamped and cut, to warmer for stimulation and evaluation. Cord gases arterial 7.186, BE -5 and venous 7.315, BE -2.5. Infant to NICU for transitioning. Apgars 2/4/5. Placenta zurita, intact with 3v cord @ 0458. Fundus firmed with massage and premixed IV pitocin bolus. EBL 350. Cervix, vagina and perineum intact. Sponge, sharp and instrument count correct. Latrice Song CNM Mar 07, 2021 06:06
[2021-03-07] MEDS: PRENATAL VITAMINS CHEWABLE TABLET PO SCH (10:50)
[2021-03-07] MEDS: IBUPROFEN 800 MG TAB PO PRN ×2 (10:51→18:57)
[2021-03-07] MEDS: ACETAMINOPHEN 500 MG TAB PO PRN (12:49)
[2021-03-07] MEDS ORDERED: PILL CUTTER 1 EACH XX PRN (22:55)
[2021-03-08] MEDS: ACETAMINOPHEN 500 MG TAB PO PRN ×2 (02:26→11:36)
[2021-03-08 05:57] VITALS: BP 102/68
[2021-03-08] MEDS: IBUPROFEN 800 MG TAB PO PRN ×2 (08:46→20:12)
[2021-03-08] MEDS: PRENATAL VITAMINS CHEWABLE TABLET PO SCH (08:46)
[2021-03-08] MEDS: METHADONE 10 MG TAB (S0109) PO SCH ×2 (11:35→23:02)
[2021-03-08 18:00] VITALS: BP 114/64
[2021-03-08] MEDS: FLUoxetine 20 MG CAP PO SCH (23:02)
[2021-03-09] MEDS ORDERED: IBUP80TA PO (05:34)
[2021-03-09] MEDS ORDERED: ACET-683 PO (05:34)
[2021-03-09] MEDS: IBUPROFEN 800 MG TAB PO PRN (05:41)
[2021-03-09 05:52] VITALS: BP 108/59
[2021-03-09 07:51] LABS: HIV 1&2 SCREEN CENTAUR NEGATIVE (NEGATIVE)
[2021-03-09] MEDS: PRENATAL VITAMINS CHEWABLE TABLET PO SCH (08:35)
[2021-03-09] MEDS: METHADONE 10 MG TAB (S0109) PO SCH (11:02)
== END 2021-03-09 15:30 | disposition home or self-care (01) | DRG 807 ==
LOC: M LDI 18:15 → M OBS 03-07 12:58
PROVIDERS: ADMIT Advanced Practice Midwife; ATTEND Advanced Practice Midwife
PROC: 10E0XZZ Delivery of Products of Conception, External Approach (ICD-10-PCS; principal; 2021-03-07)
PROC: 10907ZC Drainage of Amniotic Fluid, Therapeutic from Products of Conception, Via Natural or Artificial Opening (ICD-10-PCS; 2021-03-07)
DX: O99.324 Drug use complicating childbirth (principal); Z37.0 Single live birth; O69.1XX0 Labor and delivery complicated by cord around neck, with compression, not applicable or unspecified; Z3A.39 39 weeks gestation of pregnancy; F11.21 Opioid dependence, in remission

== ENCOUNTER 2021-08-16 12:10 | Emergency (ER) | payer OTHER ==
[~2021-08-16] VITALS: Ht 154.9 cm; Wt 74.7 kg
[~2021-08-16 12:10] MED LIST changes: +ACET-683 PO; +IBUP80TA PO; +METH-1177 PO; -METH10TA2 PO; +PRENTAB9 PO
[2021-08-16] MEDS ORDERED: ALBUTEROL 90 MCG/ACT 8GM HFA INHALER INH ONE (14:00)
[2021-08-16 15:27] LABS: RSV AMPLIFICATION NEGATIVE (NEGATIVE)
[2021-08-16] MEDS ORDERED: MUCI600T31 PO (15:44)
[2021-08-16] MEDS ORDERED: PROAAER10 INH (15:44)
[2021-08-16 16:06] VITALS: BP 105/61
--- NOTE | 2021-08-16 20:44 | ECGEPIP ---
[facility] - ED Test Date: 2021-08-16 Pat Name: MINDI KAPLAN Department: Room: - Gender: Female Radiological Health Specialist: GABY : 1985 Requested By: Lucila Hansen PA-C Order Number: [id number] Reading MD: Jefferson Pedraza Measurements Intervals [place] Rate: 68 P: 67 AK: 174 QRS: 33 QRSD: 100 T: 23 QT: 432 QTc: 459 Interpretive Statements Normal sinus rhythm POOR R WAVE PROGRESSION SIMILAR TO 02/27/20 Electronically Signed on 08-16-2021 20:44:35 EDT by Jefferson Pedraza
== END 2021-08-16 16:07 | disposition home or self-care (01) ==
LOC: M ED 12:10
DX: R06.02 Shortness of breath (principal); B34.8 Other viral infections of unspecified site; J45.909 Unspecified asthma, uncomplicated; F33.9 Major depressive disorder, recurrent, unspecified; F41.9 Anxiety disorder, unspecified; Z79.899 Other long term (current) drug therapy; Z88.0 Allergy status to penicillin; Z88.2 Allergy status to sulfonamides; Z88.8 Allergy status to other drugs, medicaments and biological substances; F17.210 Nicotine dependence, cigarettes, uncomplicated

== ENCOUNTER 2022-03-29 09:30 | Inpatient (IN) | payer OTHER ==
[~2022-03-29] VITALS: Ht 154.9 cm; Wt 80.1 kg
[~2022-03-29 09:30] MED LIST changes: +MUCI600T31 PO; +PROAAER10 INH
[2022-04-09] VITALS (39 sets, daily range): BP systolic 94–148; BP diastolic 50–79
[2022-04-09] MEDS ORDERED: HOME MED LIST COMPLETE! XX SCH (18:40)
[2022-04-09] MEDS ORDERED: LIDOCAINE 1% MDV 20ML VIAL INFIL PRN (18:45)
[2022-04-09] MEDS ORDERED: OXYTOCIN DRIP 30 UNITS in IV 1 EA IV PRN ×6 (18:45)
[2022-04-09] MEDS ORDERED: miSOPROStol 50MCG 1/2 TABLET PO ONE (18:45)
[2022-04-09] MEDS ORDERED: OXYTOCIN INJ 10 UNITS/ML VIAL (J2590) IV PRN (18:45)
[2022-04-09] MEDS ORDERED: OXYTOCIN DRIP 30 UNITS in IV 1 EA IV SCH (18:45)
[2022-04-09] MEDS ORDERED: LR 1,000 ML IV SCH (18:50)
[2022-04-09] MEDS ORDERED: LR 1,000 ML IV ONE (18:50)
[2022-04-09] MEDS ORDERED: METH5TA PO ×2 (19:18→19:19)
[2022-04-09] MEDS ORDERED: PROZ40CA PO (19:20)
[2022-04-09 19:21] LABS: HEMATOCRIT 29.9 % (36.0-47.0); HEMOGLOBIN 9.9 g/dl (12.0-15.5); MEAN CORPUSCULAR HEMOGLOBIN 27.8 pg (27.0-33.0); MEAN CORPUSCULAR HGB CONC 33.1 g/dl (32.0-36.5); PLATELET COUNT, AUTOMATED 318 10^3/uL (150-450); RED BLOOD COUNT 3.56 10^6/uL (4.00-5.40); WHITE BLOOD COUNT 10.2 10^3/uL (4.0-10.0)
[2022-04-09] MEDS: LR 1,000 ML IV SCH (20:12)
[2022-04-09] MEDS ORDERED: LR 500 ML IV PRN (20:40)
[2022-04-09] MEDS ORDERED: EPIDURAL/PCA KEYS XX PRN (20:40)
[2022-04-09] MEDS ORDERED: ONDANSETRON 4MG/2ML VIAL IV PRN (20:40)
[2022-04-09] MEDS ORDERED: ePHEDrine SULFATE 25 MG/5 ML(5MG/ML) SYRINGE IVP PRN (20:40)
[2022-04-09] MEDS ORDERED: FENTANYL/ROPIVACAINE/NACL BAG 100 ML EPIDURAL SCH (20:40)
[2022-04-09] MEDS ORDERED: NALOXONE INJ 0.4MG/1ML VIAL (J2310 PER 1MG) IV PRN (20:40)
[2022-04-09] MEDS ORDERED: FENTANYL 2MCG/ML ROPIVACAINE 0.2% IN 0.9% NACL 100ML IVBAG As Ordered ONE (20:42)
[2022-04-09] MEDS ORDERED: FLUoxetine 20MG CAP PO SCH (21:00)
[2022-04-09] MEDS ORDERED: METHADONE 10MG TAB PO SCH (23:00)
[2022-04-09] MEDS: NICOTINE 21MG/24HR 1 EA TRANSDERMAL TD PRN (23:04)
[2022-04-10] VITALS (13 sets, daily range): BP systolic 109–149; BP diastolic 56–105
[2022-04-10] MEDS: LR 1,000 ML IV SCH (00:58)
[2022-04-10] MEDS ORDERED: DOCUSATE SODIUM 100MG CAPSULE PO PRN (01:45)
[2022-04-10] MEDS ORDERED: DIBUCAINE 1% OINTMENT 30GM TOP PRN (01:45)
[2022-04-10] MEDS ORDERED: MEASLES,MUMPS,RUBELLA VACCINE INJ (MMR-II) (90707) SC SCH (01:45)
[2022-04-10] MEDS ORDERED: MOM 30ML SUSPENSION UDC PO PRN (01:45)
[2022-04-10] MEDS ORDERED: METHYLERGONOVINE MALEATE 0.2 MG TAB PO PRN (01:45)
[2022-04-10] MEDS ORDERED: RHOGAM 300 MCG (1500 IU) INJ (J2790) IM SCH (01:45)
[2022-04-10 01:52] LABS: CORD GAS ABE A -4.7; CORD GAS HCO3 A 27.5 MEQ/L; CORD GAS O2 SAT A 41.1 %; CORD GAS PCO2 A 83.9 mmHg; CORD GAS PH A 7.133 UNITS; CORD GAS PO2 A 20.4 mmHg; CORD GAS SBC A 19.1 MEQ/L
[2022-04-10 02:01] LABS: CORD GAS ABE V -1.7; CORD GAS O2 SAT V 54.5 %; CORD GAS PCO2 V 54.4 mmHg; CORD GAS PH V 7.297 UNITS; CORD GAS PO2 V 21.7 mmHg; CORD GAS SBC V 21.8 MEQ/L; CORD GAS TCO2 V 27.7 MEQ/L
[2022-04-10] MEDS: ACETAMINOPHEN 500 MG TAB PO PRN ×3 (06:45→18:42)
[2022-04-10] MEDS: PRENATAL VITAMINS CHEWABLE TABLET PO SCH (08:23)
[2022-04-10] MEDS: IBUPROFEN 800 MG TAB PO PRN ×2 (08:23→17:06)
[2022-04-10] MEDS ORDERED: PRENATAL VITAMINS CHEWABLE TABLET PO SCH (09:00)
[2022-04-10] MEDS: METHADONE 10MG TAB PO SCH (09:14)
[2022-04-10] MEDS: NICOTINE 21MG/24HR 1 EA TRANSDERMAL TD PRN (15:24)
[2022-04-10] MEDS ORDERED: FLUoxetine 20MG CAP PO SCH (21:00)
[2022-04-10] MEDS ORDERED: METHADONE 10MG TAB PO SCH (21:00)
[2022-04-11] MEDS: IBUPROFEN 800 MG TAB PO PRN ×2 (01:11→08:13)
[2022-04-11 05:48] VITALS: BP 131/66
[2022-04-11] MEDS: PRENATAL VITAMINS CHEWABLE TABLET PO SCH (08:12)
[2022-04-11] MEDS ORDERED: COLA100C5 PO (08:20)
[2022-04-11] MEDS: METHADONE 10MG TAB PO SCH (09:28)
== END 2022-04-11 10:13 | disposition home or self-care (01) | DRG 807 ==
LOC: M LDI 04-09 18:11 → M OBS 04-10 03:20
PROVIDERS: ADMIT Obstetrics & Gynecology; ATTEND Obstetrics & Gynecology
PROC: 10E0XZZ Delivery of Products of Conception, External Approach (ICD-10-PCS; principal; 2022-04-10)
DX: O48.0 Post-term pregnancy (principal); Z37.0 Single live birth; Z3A.41 41 weeks gestation of pregnancy; O99.334 Smoking (tobacco) complicating childbirth; F17.210 Nicotine dependence, cigarettes, uncomplicated; O99.344 Other mental disorders complicating childbirth; F32.A Depression, unspecified; O69.1XX0 Labor and delivery complicated by cord around neck, with compression, not applicable or unspecified

== ENCOUNTER → 2022-08-16 | Outpatient (CLI) | payer SELFPAY ==
[~2022-08-16] MED LIST changes: +COLA100C5 PO; +METH5TA PO; +PROZ40CA PO
[2022-08-16 14:13] LABS: HEMATOCRIT 36.9 % (36.0-47.0); HEMOGLOBIN 12.1 g/dl (12.0-15.5); MEAN CORPUSCULAR HEMOGLOBIN 28.5 pg (27.0-33.0); MEAN CORPUSCULAR HGB CONC 32.8 g/dl (32.0-36.5); PLATELET COUNT, AUTOMATED 294 10^3/uL (150-450); RED BLOOD COUNT 4.24 10^6/uL (4.00-5.40)
[2022-08-16 14:59] LABS: HCG, SERUM QUALITATIVE NEGATIVE (NEGATIVE)
[2022-08-16 15:07] LABS: ALBUMIN 3.7 GM/DL (3.2-5.2); ALKALINE PHOSPHATASE 54 U/L (45-117); ALT/SGPT 29 U/L (12-78); AST/SGOT 22 U/L (7-37); BILIRUBIN,TOTAL 0.2 MG/DL (0.2-1.0); BLOOD UREA NITROGEN 13 MG/DL (7-18); CALCIUM LEVEL 8.8 MG/DL (8.5-10.1); CARBON DIOXIDE LEVEL 26 MEQ/L (21-32); CHLORIDE LEVEL 109 MEQ/L (98-107); CREATININE FOR GFR 0.81 MG/DL (0.55-1.30); GLOMERULAR FILTRATION RATE > 60.0 (>60); GLUCOSE, FASTING 104 MG/DL (70-100); SODIUM LEVEL 139 MEQ/L (136-145); TOTAL PROTEIN 7.2 GM/DL (6.4-8.2)
[2022-08-16 16:20] LABS: GC DNA AMPLIFICATION NEGATIVE (NEGATIVE)
[2022-08-16 16:21] LABS: HEPATITIS C VIRUS ABY INDEX < 0.0 INDEX (<0.8); HIV 1&2 SCREEN CENTAUR NEGATIVE (NEGATIVE)
[2022-08-27 12:09] LABS: HEPATITIS BE ANTIGEN Negative (Negative); METHADONE LEVEL BLOOD 486 ng/mL (100-400)
== END ==
LOC: M LAB 12:54
PROVIDERS: ATTEND Family Medicine
DX: F11.20 Opioid dependence, uncomplicated (principal)
CPT/HCPCS: 36415; 80053; 84703; 85027; 86780; 86803; 87350; 87389; 87810; 87850; G0480

== ENCOUNTER → 2024-09-28 | Outpatient (CLI) | payer BC | LOC: M LAB 15:50 | PROVIDERS: ATTEND Obstetrics & Gynecology Obstetrics | DX: N97.9 Female infertility, unspecified (principal) ==

== ENCOUNTER 2024-10-12 10:24 | Emergency (ER) | payer BC, SELFPAY ==
[~2024-10-12] VITALS: Ht 154.9 cm; Wt 66.8 kg
[2024-10-12] MEDS ORDERED: SUMA25TA3 PO (10:34)
[2024-10-12] MEDS ORDERED: RIZA10TA64 PO (10:34)
[2024-10-12] MEDS ORDERED: HYDR-3713 (10:34)
[2024-10-12] MEDS: dexAMETHasone 20MG/5ML VIAL IV ONE (13:27)
[2024-10-12] MEDS: ACETAMINOPHEN *IV* 1,000 MG in IV 1 EA IV ONE (13:27)
[2024-10-12] MEDS: KETOROLAC 30 MG/ML 1ML VIAL IV ONE (13:28)
[2024-10-12] MEDS: METOCLOPRAMIDE INJ 10MG/2ML VIAL IV ONE (13:28)
[2024-10-12 13:57] LABS: HCG, SERUM QUALITATIVE NEGATIVE (NEGATIVE)
[2024-10-12] MEDS: MAG SULF 1GM/100ML (MAG RUN) 1 GM in IV 1 EA IV ONE (14:12)
[2024-10-12 15:21] VITALS: BP 110/64; TEMP 98.1; O2SAT 100
== END 2024-10-12 15:26 | disposition home or self-care (01) ==
LOC: M ED 10:24
DX: G43.501 Persistent migraine aura without cerebral infarction, not intractable, with status migrainosus (principal); F41.9 Anxiety disorder, unspecified; F32.A Depression, unspecified; J45.909 Unspecified asthma, uncomplicated; Z87.59 Personal history of other complications of pregnancy, childbirth and the puerperium; F42.9 Obsessive-compulsive disorder, unspecified; F17.200 Nicotine dependence, unspecified, uncomplicated; Z79.899 Other long term (current) drug therapy
CPT/HCPCS: 70450; 84703; 96365; 96367; 96375; 99284; J0131; J1885; J2765; J3475

== ENCOUNTER → 2024-12-18 | Outpatient (CLI) | payer MEDICAID ==
[~2024-12-18] MED LIST changes: +HYDR-3713; +RIZA10TA64 PO; +SUMA25TA3 PO
== END ==
LOC: M RAD 13:35
PROVIDERS: ATTEND Obstetrics & Gynecology Obstetrics
DX: Z34.81 Encounter for supervision of other normal pregnancy, first trimester (principal); Z3A.10 10 weeks gestation of pregnancy

== ENCOUNTER → 2024-12-24 | Outpatient (CLI) | payer OTHER, SELFPAY ==
[2024-12-24 17:48] LABS: HEMATOCRIT 34.7 % (36.0-47.0); HEMOGLOBIN 11.7 g/dl (12.0-15.5); MEAN CORPUSCULAR HEMOGLOBIN 30.8 pg (27.0-33.0); MEAN CORPUSCULAR HGB CONC 33.7 g/dl (32.0-36.5); MEAN CORPUSCULAR VOLUME 91.3 fl (80.0-96.0); PLATELET COUNT, AUTOMATED 283 10^3/uL (150-450); WHITE BLOOD COUNT 8.6 10^3/uL (4.0-10.0)
[2024-12-24 18:56] LABS: Trichomonas vaginalis (AMP) NOT DETECTED (NEGATIVE)
[2024-12-24 19:03] LABS: HIV 1&2 SCREEN NEGATIVE (NEGATIVE)
[2024-12-24 19:11] LABS: HEPATITIS C VIRUS ABY INDEX 0.14 INDEX (<0.8)
[2024-12-24 19:19] LABS: GC DNA AMPLIFICATION NEGATIVE (NEGATIVE)
== END ==
LOC: M PLALAB 15:55
PROVIDERS: ATTEND Obstetrics & Gynecology
DX: O09.529 Supervision of elderly multigravida, unspecified trimester (principal); Z3A.00 Weeks of gestation of pregnancy not specified

== ENCOUNTER 2025-01-02 17:45 | Emergency (ER) | payer BC, OTHER, SELFPAY ==
[2025-01-02 18:16] VITALS: TEMP 98.5
[2025-01-02 20:49] LABS: BASO % 0.4 % (0.0-1.0); EOS # 0.1 10^3/uL (0.0-0.5); EOS % 0.9 % (0.0-3.0); HEMATOCRIT 34.7 % (36.0-47.0); HEMOGLOBIN 12.2 g/dl (12.0-15.5); LYMPH # 1.5 10^3/uL (1.5-5.0); LYMPH % 18.9 % (24.0-44.0); MEAN CORPUSCULAR HEMOGLOBIN 31.6 pg (27.0-33.0); MEAN CORPUSCULAR HGB CONC 35.2 g/dl (32.0-36.5); MEAN CORPUSCULAR VOLUME 89.9 fl (80.0-96.0); MONO # 0.5 10^3/uL (0.0-0.8); MONO % 5.6 % (2.0-8.0); NEUTROPHILS % 73.7 % (36.0-66.0); PLATELET COUNT, AUTOMATED 275 10^3/uL (150-450); RED BLOOD COUNT 3.86 10^6/uL (4.00-5.40); WHITE BLOOD COUNT 8.2 10^3/uL (4.0-10.0)
[2025-01-02 21:17] LABS: BLOOD UREA NITROGEN 6 MG/DL (9-23); CALCIUM LEVEL 9.4 MG/DL (8.5-10.1); CARBON DIOXIDE LEVEL 28 MMOL/L (20-31); CHLORIDE LEVEL 107 MMOL/L (98-107); CREATININE FOR GFR 0.59 MG/DL (0.55-1.30); GLOMERULAR FILTRATION RATE > 60.0 (>60); GLUCOSE, FASTING 98 MG/DL (60-100); POTASSIUM SERUM 4.2 MMOL/L (3.5-5.1); SODIUM LEVEL 140 MMOL/L (136-145)
[2025-01-02 21:30] LABS: HCG, SERUM QUANTITATIVE 90517.2 MIU/ML (<4.2)
[2025-01-02 22:28] LABS: KETONE, URINE MANUAL REFLEX 1+ mg/dL (NEGATIVE); PROTEIN, URINE MANUAL REFLEX NEGATIVE (NEGATIVE); UROBILINOGEN, UA MANUAL REFLEX NORMAL (NORMAL)
[2025-01-02 22:29] LABS: NITRITE, URINE MANUAL RFX NEGATIVE (NEGATIVE)
[2025-01-03 02:10] VITALS: BP 107/61; O2SAT 100
== END 2025-01-03 02:25 | disposition home or self-care (01) ==
LOC: M ED 17:45
DX: O20.8 Other hemorrhage in early pregnancy (principal); Z3A.13 13 weeks gestation of pregnancy; O99.341 Other mental disorders complicating pregnancy, first trimester; O99.511 Diseases of the respiratory system complicating pregnancy, first trimester; O09.521 Supervision of elderly multigravida, first trimester; Z79.899 Other long term (current) drug therapy; Z88.0 Allergy status to penicillin; Z88.2 Allergy status to sulfonamides; Z88.8 Allergy status to other drugs, medicaments and biological substances

== ENCOUNTER → 2025-01-30 | Outpatient (CLI) | payer OTHER | LOC: M LAB 09:50 | PROVIDERS: ATTEND Obstetrics & Gynecology | DX: Z36.89 Encounter for other specified antenatal screening (principal); Z3A.15 15 weeks gestation of pregnancy ==

== ENCOUNTER → 2025-01-30 | Outpatient (CLI) | payer OTHER | LOC: M LAB 09:47 | PROVIDERS: ATTEND Obstetrics & Gynecology | DX: Z34.91 Encounter for supervision of normal pregnancy, unspecified, first trimester (principal) ==

== ENCOUNTER → 2025-02-13 | Outpatient (CLI) | payer OTHER | LOC: M RAD 15:42 | PROVIDERS: ATTEND Obstetrics & Gynecology | DX: O09.522 Supervision of elderly multigravida, second trimester (principal); Z3A.18 18 weeks gestation of pregnancy ==

== ENCOUNTER 2025-02-23 16:26 | Emergency (ER) | payer OTHER ==
[~2025-02-23] VITALS: Ht 154.9 cm; Wt 70.3 kg
[2025-02-23 16:30] VITALS: BP 110/57; TEMP 97.9; O2SAT 100
== END 2025-02-23 16:31 | disposition admitted as inpatient to this hospital (09) ==
LOC: M ED 16:26
DX: Z53.21 Procedure and treatment not carried out due to patient leaving prior to being seen by health care provider (principal)

== ENCOUNTER 2025-02-23 16:41 | Outpatient (CLI) | payer OTHER ==
[~2025-02-23] VITALS: Ht 154.9 cm; Wt 70.1 kg
[2025-02-23 16:55] VITALS: BP 101/61
[2025-02-23] MEDS ORDERED: HOME MED LIST COMPLETE! XX SCH (17:00)
[2025-02-23] MEDS: ACETAMINOPHEN 500 MG TAB PO ONE (17:53)
== END 2025-02-23 18:52 | disposition home or self-care (01) ==
LOC: M LDO 16:41
PROVIDERS: ATTEND Specialist
DX: O26.892 Other specified pregnancy related conditions, second trimester (principal); O99.322 Drug use complicating pregnancy, second trimester; O99.342 Other mental disorders complicating pregnancy, second trimester; O09.522 Supervision of elderly multigravida, second trimester; O26.22 Pregnancy care for patient with recurrent pregnancy loss, second trimester; O99.512 Diseases of the respiratory system complicating pregnancy, second trimester; R51.9 Headache, unspecified; R10.2 Pelvic and perineal pain; Z88.0 Allergy status to penicillin; Z88.1 Allergy status to other antibiotic agents; Z88.2 Allergy status to sulfonamides; Z86.32 Personal history of gestational diabetes; J45.909 Unspecified asthma, uncomplicated; F11.11 Opioid abuse, in remission; F41.9 Anxiety disorder, unspecified; F32.A Depression, unspecified; Z3A.20 20 weeks gestation of pregnancy
CPT/HCPCS: 76815; G0463

== ENCOUNTER → 2025-03-21 | Outpatient (CLI) | payer OTHER | LOC: M WHC 12:05 | PROVIDERS: ATTEND Nurse Practitioner Family | DX: Z34.82 Encounter for supervision of other normal pregnancy, second trimester (principal) ==

== ENCOUNTER 2025-05-31 13:44 | Outpatient (CLI) | payer OTHER ==
[~2025-05-31] VITALS: Ht 154.9 cm; Wt 67.0 kg
[2025-05-31 14:06] VITALS: BP 110/77
[2025-05-31] MEDS ORDERED: ACET-683 PO (14:11)
[2025-05-31 14:50] LABS: PLATELET COUNT, AUTOMATED 292 10^3/uL (150-450)
[2025-05-31] MEDS: LR 1,000 ML IV ONE (15:00)
[2025-05-31] MEDS ORDERED: HOME MED LIST COMPLETE! XX SCH (15:35)
[2025-05-31 16:14] LABS: APPEARANCE, URINE HAZY (CLEAR); BACTERIA, URINE AUTO NEGATIVE (NEGATIVE); BILIRUBIN, URINE AUTO NEGATIVE (NEGATIVE); BLOOD, URINE BLOOD NEGATIVE (NEGATIVE); GLUCOSE, URINE (UA) AUTO NEGATIVE (NEGATIVE); KETONE, URINE AUTO NEGATIVE (NEGATIVE); LEUKOCYTE ESTERASE, URINE AUTO TRACE (NEGATIVE); MUCUS, URINE SMALL (NEGATIVE); NITRITE, URINE AUTO NEGATIVE (NEGATIVE); PROTEIN, URINE AUTO NEGATIVE (NEGATIVE); RBC, URINE AUTO 0 /HPF (0-3); SPECIFIC GRAVITY URINE AUTO 1.019 (1.002-1.035); SQUAMOUS EPITHELIAL CELL UR AU 13 /HPF (0-6); UROBILINOGEN, URINE AUTO 2.0 mg/dL (0.0-2.0); WBC, URINE AUTO 2 /HPF (0-3)
[2025-05-31 16:35] LABS: AMPHETAMINES LEVEL URINE NEGATIVE (NEGATIVE); BARBITURATES URINE NEGATIVE (NEGATIVE); BENZODIAZEPINES URINE NEGATIVE (NEGATIVE); CANNABINOIDS URINE NEGATIVE (NEGATIVE); OPIATES URINE NEGATIVE (NEGATIVE); PHENCYCLIDINE URINE NEGATIVE (NEGATIVE)
[2025-05-31 16:38] LABS: COCAINE METABOLITE URINE POSITIVE (NEGATIVE); METHADONE URINE POSITIVE (NEGATIVE)
== END 2025-05-31 16:15 | disposition home or self-care (01) ==
LOC: M LDO 13:44
PROVIDERS: ATTEND Obstetrics & Gynecology
DX: O09.523 Supervision of elderly multigravida, third trimester (principal); O99.323 Drug use complicating pregnancy, third trimester; F11.20 Opioid dependence, uncomplicated; Z3A.34 34 weeks gestation of pregnancy; Z86.32 Personal history of gestational diabetes; W10.9XXA Fall (on) (from) unspecified stairs and steps, initial encounter; Y92.9 Unspecified place or not applicable; Y99.9 Unspecified external cause status
CPT/HCPCS: 36415; 59025; 80307; 81001; 85027; 85460; G0463

== ENCOUNTER → 2025-06-14 | Outpatient (REF) | payer OTHER | LOC: M SFHCWAGY 16:42 | PROVIDERS: ATTEND Advanced Practice Midwife | DX: O09.523 Supervision of elderly multigravida, third trimester (principal) ==

== ENCOUNTER 2025-08-09 14:58 | Emergency (ER) | payer MEDICAID, OTHER ==
[~2025-08-09] VITALS: Ht 154.9 cm; Wt 58.8 kg
[2025-08-09 18:43] VITALS: BP 150/81; TEMP 98.4; O2SAT 99
== END 2025-08-09 18:49 | disposition home or self-care (01) ==
LOC: M ED 14:58
DX: Z91.138 Patient's unintentional underdosing of medication regimen for other reason (principal); F17.200 Nicotine dependence, unspecified, uncomplicated; Z79.899 Other long term (current) drug therapy; Z88.0 Allergy status to penicillin; Z88.2 Allergy status to sulfonamides; Z88.8 Allergy status to other drugs, medicaments and biological substances

== ENCOUNTER 2025-08-28 16:31 | Emergency (ER) | payer OTHER ==
[~2025-08-28] VITALS: Ht 154.9 cm; Wt 58.5 kg
[2025-08-28] MEDS ORDERED: PILL CUTTER 1 EACH XX PRN (20:55)
[2025-08-28] MEDS: METHADONE 10 MG TAB PO ONE (20:59)
[2025-08-28 21:02] VITALS: BP 149/67; TEMP 98; O2SAT 99
== END 2025-08-28 21:08 | disposition home or self-care (01) ==
LOC: M ED 16:31
DX: Z76.0 Encounter for issue of repeat prescription (principal); F19.20 Other psychoactive substance dependence, uncomplicated; F17.200 Nicotine dependence, unspecified, uncomplicated; Z88.0 Allergy status to penicillin; Z88.1 Allergy status to other antibiotic agents; Z88.2 Allergy status to sulfonamides
CPT/HCPCS: 99283; S0109

== ENCOUNTER 2025-09-25 12:56 | Emergency (ER) | payer OTHER ==
[~2025-09-25] VITALS: Ht 154.9 cm; Wt 59.1 kg
[2025-09-25 16:31] VITALS: BP 115/67; O2SAT 100
[2025-09-25] MEDS: METHADONE 10 MG TAB PO ONE (16:48)
[2025-09-25 17:25] VITALS: TEMP 98.8
== END 2025-09-25 17:41 | disposition home or self-care (01) ==
LOC: M ED 12:56
DX: F11.20 Opioid dependence, uncomplicated (principal); F17.200 Nicotine dependence, unspecified, uncomplicated; Z79.899 Other long term (current) drug therapy; Z88.0 Allergy status to penicillin; Z88.2 Allergy status to sulfonamides; Z88.8 Allergy status to other drugs, medicaments and biological substances
CPT/HCPCS: 99284; S0109

== ENCOUNTER 2025-10-15 16:06 | Emergency (ER) | payer OTHER ==
[~2025-10-15] VITALS: Ht 154.9 cm; Wt 59.2 kg
[2025-10-15 20:30] VITALS: BP 133/90; TEMP 97.6; O2SAT 98
[2025-10-15] MEDS: METHADONE 10 MG TAB PO ONE (20:30)
== END 2025-10-15 20:38 | disposition home or self-care (01) ==
LOC: M ED 16:06
DX: F15.20 Other stimulant dependence, uncomplicated (principal); Z79.899 Other long term (current) drug therapy; Z88.0 Allergy status to penicillin; Z88.2 Allergy status to sulfonamides; Z88.8 Allergy status to other drugs, medicaments and biological substances
CPT/HCPCS: 99283; S0109

== ENCOUNTER 2025-11-06 15:38 | Emergency (ER) | payer OTHER ==
[~2025-11-06] VITALS: Ht 154.9 cm; Wt 46.0 kg
[2025-11-06 15:41] VITALS: BP 121/80; TEMP 98.8; O2SAT 100
[2025-11-06] MEDS: METHADONE 10 MG TAB PO ONE (16:37)
== END 2025-11-06 16:41 | disposition home or self-care (01) ==
LOC: M ED 15:38
DX: F11.20 Opioid dependence, uncomplicated (principal); F41.9 Anxiety disorder, unspecified; F32.A Depression, unspecified; G43.909 Migraine, unspecified, not intractable, without status migrainosus; F17.200 Nicotine dependence, unspecified, uncomplicated; Z79.899 Other long term (current) drug therapy
CPT/HCPCS: 99283; S0109

== ENCOUNTER 2025-11-07 18:35 | Emergency (ER) | payer OTHER ==
[~2025-11-07] VITALS: Ht 154.9 cm; Wt 61.2 kg
[2025-11-07] MEDS: METHADONE 10 MG TAB PO ONE (19:26)
[2025-11-07 19:29] VITALS: BP 125/91; TEMP 98.2; O2SAT 100
== END 2025-11-07 19:40 | disposition home or self-care (01) ==
LOC: M ED 18:35
DX: F11.20 Opioid dependence, uncomplicated (principal); Z79.899 Other long term (current) drug therapy; Z88.0 Allergy status to penicillin; Z88.2 Allergy status to sulfonamides; Z88.8 Allergy status to other drugs, medicaments and biological substances
CPT/HCPCS: 99283; S0109